=== PATIENT | male | born 1955 | race Caucasian/White ===

== ENCOUNTER → 2017-01-23 | Outpatient (CLI) | payer OTHER | LOC: MRI 12:28 | DX: M54.6 Pain in thoracic spine (principal); M51.34 Other intervertebral disc degeneration, thoracic region; M51.24 Other intervertebral disc displacement, thoracic region | CPT/HCPCS: 72146 ==

== ENCOUNTER → 2021-02-14 | Outpatient (CLI) | payer OTHER | LOC: RAD 12:11 | DX: R06.00 Dyspnea, unspecified (principal); T50.995A Adverse effect of other drugs, medicaments and biological substances, initial encounter; R94.2 Abnormal results of pulmonary function studies | CPT/HCPCS: 71046 ==